=== PATIENT | male | born 1955 | race Caucasian/White ===

== ENCOUNTER 2016-09-13 05:55 | Inpatient (IN) | payer OTHER ==
[2016-09-01 11:17] VITALS: BMI 35.0
--- NOTE | 2016-09-01 11:55 | PAT Medication Instructions ---
Service Date Sep 01, 2016. Current Home Medication List Colchicine (Colchicine), 0.6 MG PO QAM Dapagliflozin-Metformin HCl (Xigduo Xr 5-1000 mg), 1 TAB PO BID Ezetimibe (Zetia), 10 MG PO QAM Fish Oil (English-3), 1 CAP PO QAM Insulin Detemir (Levemir), 20 UNITS SQ QPM Losartan Potassium (Cozaar), 50 MG PO QAM Montelukast Sodium (Montelukast Sodium), 1 TAB PO QAM Nebivolol Hcl (Bystolic), 10 MG PO QAM Pregabalin (Lyrica), 50 MG PO TID Rabeprazole Sodium (Rabeprazole Sodium), 1 TAB PO QAM Tiotropium Mckinney (Spiriva Handihaler), 1 CAP INH QAM Medication Instructions For Your Scheduled Surgery Colchicine (Colchicine), 0.6 MG PO QAM (per surgeon instructions- to hold 10 days prior to surgery per surgeon- patient will check if this is correct) - Hold the following medications starting 09/02/16: Fish Oil (English-3), 1 CAP PO QAM - Hold the following medications 48 hours prior to surgery: Dapagliflozin-Metformin HCl (Xigduo Xr 5-1000 mg), 1 TAB PO BID - Hold the following medications the morning of surgery: Losartan Potassium (Cozaar), 50 MG PO QAM Montelukast Sodium (Montelukast Sodium), 1 TAB PO QAM - Take the following medications the morning of surgery with a sip of water: Rabeprazole Sodium (Rabeprazole Sodium), 1 TAB PO QAM Pregabalin (Lyrica), 50 MG PO TID Nebivolol Hcl (Bystolic), 10 MG PO QAM Ezetimibe (Zetia), 10 MG PO QAM - Take the following medications as scheduled the night before surgery: Pregabalin (Lyrica), 50 MG PO TID Insulin Detemir (Levemir), 20 UNITS SQ QPM If you have any questions please call us at [phone] (Светлана Ventura PA-C) or [phone] or [phone]
--- NOTE | 2016-09-01 12:20 | DIAGNOSTIC IMAGING REPORT ---
CHEST 2 VIEWS ROUTINE CLINICAL HISTORY: Preoperative chest COMPARISON STUDY: No previous studies for comparison. FINDINGS: The cardiac and mediastinal contours are normal. There is no evidence of focal pulmonary consolidation. There is no evidence of failure. No pleural effusions are visualized.[ A rounded opacity at the right lung base with fading margins, likely represents a nipple shadow IMPRESSION: 1. 10 mm opacity at the right lung base, likely representing a nipple shadow. 2. No evidence of focal pulmonary consolidation. No evidence of failure. Electronically signed by: Varinder Anderson M.D. 09/01/2016 12:19 PM Dictated Date/Time: 09/01/2016 12:18 PM
[2016-09-01 12:38] LABS: BASO % 0.4 %; BASO ABS # 0.03 K/uL (0-0.2); COMPLETE YES; EOS % 1.1 %; HEMATOCRIT 45.7 % (42-52); IG% 0.5 %; LYMPH ABS # 2.21 K/uL (1.2-3.4); MEAN CELL VOLUME 90.9 fL (80-100); MEAN CORPUSCULAR HEMOGLOBIN 31.2 pg (25-34); MEAN CORPUSCULAR HGB CONC 34.4 g/dl (32-36); MONO % 8.6 %; NEUT % 63.4 %; PLATELET COUNT 192 K/uL (130-400); RED BLOOD COUNT 5.03 M/uL (4.7-6.1); WHITE BLOOD COUNT 8.49 K/uL (4.8-10.8)
[2016-09-01 12:49] LABS: PROTHROMBIN TIME (PATIENT) 10.8 SECONDS (9.0-12.0)
[2016-09-01 12:56] LABS: URINE APPEARANCE CLEAR (CLEAR); URINE BILIRUBIN NEG (NEG); URINE COLOR YELLOW; URINE NITRITE NEG (NEG); URINE SPECIFIC GRAVITY 1.038 (1.000-1.030); UROBILINOGEN NEG (NEG); ZZUR CULT IF INDIC CLEAN CATCH NO
[2016-09-01 13:04] LABS: BUN/CREATININE RATIO 20.3 (10-20); CALCIUM 9.2 mg/dl (8.5-10.1); CREATININE 0.93 mg/dl (0.60-1.40); POTASSIUM 4.3 mmol/L (3.5-5.1)
[2016-09-01 13:05] LABS: MANUAL MICROSCOPIC REQUIRED? NO; REVIEW REQ? NO
[2016-09-01 13:12] LABS: ESTIMATED AVERAGE GLUCOSE 169 mg/dl; HA1C FLAG Normal (Normal)
--- NOTE | 2016-09-12 10:42 | HISTORY & PHYSICAL EXAMINATION ---
DATE OF ADMISSION: 09/13/2016 CHIEF COMPLAINT: Right hip pain. HISTORY OF PRESENT ILLNESS: Ron is a 61-year-old male who has 30-year history of right hip pain. The patient rates his pain a 10/10. He has pain with his daily activities. He has limited standing and walking tolerance. Pain is worse with weightbearing. The patient has had NSAIDs and home exercise program without relief. He is now ready to proceed with right total hip arthroplasty. PAST MEDICAL HISTORY: Hypercholesterolemia, sleep apnea, diabetes, GERD, history of MRSA right upper extremity, history of gout. He denies heart disease or DVT. PAST SURGICAL HISTORY: I\T\D right forearm. SOCIAL HISTORY: The patient denies alcohol or tobacco use. He lives in a single-story home with his and is retired. FAMILY HISTORY: Negative for DVT. MEDICATIONS: Montelukast 10 mg daily, Xigduo XR 5 mg b.i.d., omega-3 500 mg daily, Lyrica 50 mg t.i.d., ezetimibe 10 mg daily, rabeprazole 20 mg daily, colchicine 0.6 mg daily, losartan 50 mg daily, Bystolic 10 mg daily, Spiriva 2.5 mcg 2 puffs daily, Levemir 20 units at p.m. ALLERGIES: None. REVIEW OF SYSTEMS: See HPI. Ten other systems reviewed, all negative. PHYSICAL EXAMINATION: VITAL SIGNS: Height 5 feet 9, weight 242 pounds. BMI is 36. GENERAL: This is a well-developed, well-nourished male who is alert and oriented x3. Mood and affect are appropriate. HEENT: Normocephalic, atraumatic. Mucous membranes are moist and intact. NECK: Supple without lymphadenopathy. HEART: Regular rate and rhythm without murmurs, rubs or gallops. LUNGS: Clear to auscultation without wheezes or rhonchi. ABDOMEN: Soft and nontender. Bowel sounds are equal and active. EXTREMITIES: No ecchymosis, redness or warmth. Thigh and calf are soft and nontender. He has reproducible pain with log rolling of the hip. Range of motion is decreased. He is neurovascularly intact. He does have some chronic bilateral lower extremity neuropathy. He walks with an antalgic gait. X-RAY EXAMINATION: AP and lateral views show joint space narrowing and osteophyte formation. IMPRESSION: Degenerative joint disease, right hip. PLAN: The patient will be admitted for a right total hip arthroplasty. We will plan on [facility] for physical therapy. PCP is Dr. Meléndez.
[~2016-09-13] VITALS: Ht 175.3 cm; Wt 110.0 kg
[2016-09-13] VITALS (10 sets, daily range): BP systolic 104–140; BP diastolic 66–89; PULSE 76–86; TEMP 36.4–36.9; O2SAT 93–96; Ht 175.3 cm; Wt 110.0 kg
[~2016-09-13 05:55] MED LIST: COLC0.6T54 PO; DAPA1TAB5 PO; EZET10TA63 PO; LOSA50TA6 PO; LVMI SQ; LYR50 PO; MONT1TAB5 PO; NEBI10TA2 PO; OMEG10007 PO; RABE1TAB2 PO; SPRIN/30 INH
[2016-09-13] MEDS ORDERED: METOCLOPRAMIDE HCL 10 MG TAB PO SCH (06:00)
[2016-09-13] MEDS ORDERED: CEFAZOLIN 2000 MG/60 ML D5W 60 ML IV SCH (06:00)
[2016-09-13] MEDS ORDERED: LACTATED RINGER'S 1000ML IV SCH (06:00)
[2016-09-13] MEDS ORDERED: GABAPENTIN 300 MG CAP PO SCH (06:00)
[2016-09-13] MEDS ORDERED: ROPIVACAINE 5MG/ML 30 ML 150 MG, BUPIVACAINE/EPINEPHR 0.5% MPF 30 ML, KETOROLAC TROMETH... INFIL SCH ×7 (06:00)
[2016-09-13] MEDS ORDERED: ACETAMINOPHEN 500 MG TAB PO SCH (06:00)
[2016-09-13] MEDS ORDERED: FAMOTIDINE 20 MG TAB PO SCH (06:00)
[2016-09-13] MEDS ORDERED: VANCOMYCIN INJ 400 MG in NSS 100ML IR SCH (06:00)
[2016-09-13] MEDS ORDERED: OXYCODONE HCL 10 MG TABCR (OXYCONTIN) PO SCH (06:00)
[2016-09-13] MEDS ORDERED: CeleBREX 200 MG CAP PO SCH (06:00)
[2016-09-13] MEDS ORDERED: POLYMYXIN B SULFATE 100,000 UNITS in NSS 100ML IR SCH (06:00)
[2016-09-13] MEDS ORDERED: MIDAZOLAM HCL 1 MG/ML 2ML VIAL ONE (06:55)
--- NOTE | 2016-09-13 06:55 | History & Physical Bridge Note ---
H&P Re-Evaluation Bridge Note: I have examined the patient, reviewed the History & Physical and in the interval since the performance of the History & Physical I have noted the following changes of clinical significance: No changes noted
[2016-09-13] MEDS ORDERED: FENTANYL CITRATE INJ 50 MCG/1 ML 2 ML VIAL ONE (07:24)
[2016-09-13] MEDS ORDERED: BUPIVACAINE 0.5 % 5 MG/1 ML PF 10ML VIAL ONE (07:32)
[2016-09-13] MEDS ORDERED: BACITRACIN 50000 UNIT VIAL ONE (07:44)
[2016-09-13] MEDS ORDERED: POVIDONE-IODINE OP SOLN 30 ML BTL ONE (07:44)
[2016-09-13] MEDS ORDERED: ORTHO JOINT ANESTHETIC ONE (07:44)
[2016-09-13] MEDS ORDERED: ALBUTEROL 0.083% NEBU SOLN 3 ML VIAL INH PRN (08:15)
[2016-09-13] MEDS ORDERED: MoRPHine SULFATE 10 MG/ML CARP/VIAL IV PRN (08:15)
[2016-09-13] MEDS ORDERED: FENTANYL CITRATE INJ 50 MCG/1 ML 2 ML VIAL IV PRN (08:15)
[2016-09-13] MEDS ORDERED: ATROPINE SULFATE 0.1 MG/ML 5ML SYR IV PRN (08:15)
[2016-09-13] MEDS ORDERED: EpHEDrine SULFATE INJ 50 MG/ML AMP IV PRN (08:15)
[2016-09-13] MEDS ORDERED: ONDANSETRON INJ 2 MG/ML 2 ML VIAL IV PRN ×2 (08:15→10:15)
[2016-09-13] MEDS ORDERED: MEPERIDINE HCL 25 MG/ML CARP IV PRN (08:15)
[2016-09-13] MEDS ORDERED: PROPOFOL IV EMULSION 10 MG/ML 20 ML VIAL IV ONE (09:33)
[2016-09-13] MEDS ORDERED: PHENYLEPHRINE 100MCG/ML 5ML SYR ONE (09:33)
--- NOTE | 2016-09-13 10:04 | [facility] Post Operative Brief Note ---
Immediate Operative Summary Operative Date Sep 13, 2016. Pre-Operative Diagnosis Degenerative joint disease, right hip Post-Operative Diagnosis Same as preop Procedure(s) Performed Right Total Hip Arthroplasty, uncemented, Direct Anterior Approach Surgeon Dr. Campbell Ruffler Surgeon(s) Daija Chavira PA-C Estimated Blood Loss 50 cc Findings DJD Specimens A: right femoral head Complication(s) None Disposition Recovery Room / PACU
--- NOTE | 2016-09-13 10:11 | DIAGNOSTIC IMAGING REPORT ---
RIGHT HIP OR FILMS CLINICAL HISTORY: Right hip prosthesis. COMPARISON STUDY: None. FLUOROSCOPY TIME: 12 seconds.. FINDINGS: A single fluoroscopic spot image of the right hip. There is a right total hip arthroplasty. The hardware appears intact. No fracture or dislocation. IMPRESSION: Fluoroscopy provided for right total hip arthroplasty. Electronically signed by: Dereck Andrade M.D. 09/13/2016 10:09 AM Dictated Date/Time: 09/13/2016 10:09 AM
[2016-09-13] MEDS ORDERED: ZOLPIDEM TARTRATE 5 MG TAB PO PRN (10:15)
[2016-09-13] MEDS ORDERED: TRAMADOL HCL 50 MG TAB PO PRN (10:15)
[2016-09-13] MEDS ORDERED: MAGNESIUM HYDROXIDE SUSP 30 ML UDC PO PRN (10:15)
[2016-09-13] MEDS ORDERED: METOCLOPRAMIDE HCL INJ 5 MG/ML 2 ML VIAL IV PRN (10:15)
[2016-09-13] MEDS ORDERED: MoRPHine SULFATE 2 MG/ML CARP IV PRN (10:15)
[2016-09-13] MEDS ORDERED: DiphenhydrAMINE HCL 50 MG/ML VIAL IV PRN (10:15)
[2016-09-13] MEDS ORDERED: ALUMINUM/MAGNESIUM/SIMETH (MAALOX MAX) 30 ML UDC PO PRN (10:15)
[2016-09-13] MEDS ORDERED: BISACODYL 10 MG SUPP PR PRN (10:15)
[2016-09-13] MEDS ORDERED: SOD PHOSPHATE/SOD BIPHOSPHATE ENEMA 132 ML BTL PR PRN (10:15)
[2016-09-13] MEDS ORDERED: NURSING VERBAL MED ORDER ONE (11:00)
--- NOTE | 2016-09-13 11:00 | DIAGNOSTIC IMAGING REPORT ---
AP PELVIS, CROSSTABLE LATERAL RIGHT HIP History: Right total hip arthroplasty. Degenerative arthritis. Postop. FINDINGS: The patient is status post a right total hip arthroplasty. The hardware is intact. No fracture or dislocation. Surgical drains are in place. IMPRESSION: Right total hip arthroplasty. No evidence for hardware complication Electronically signed by: Dereck Andrade M.D. 09/13/2016 10:59 AM Dictated Date/Time: 09/13/2016 10:55 AM
--- NOTE | 2016-09-13 11:44 | Anesthesiology Progress Note ---
Anesthesia Post Op Note Date & Time Sep 13, 2016 at 11:44 Vital Signs Pain Intensity: 0 Vital Signs Past 12 Hours Date Time Temp Pulse Resp B/P Pulse Ox O2 Delivery O2 Flow Rate FiO2 09/13/16 11:40 37 75 16 132/89 96 Nasal Cannula 2 09/13/16 11:30 72 16 135/77 96 Nasal Cannula 2 09/13/16 11:20 72 16 122/85 96 Nasal Cannula 2 09/13/16 11:10 74 16 134/74 100 Nasal Cannula 2 09/13/16 11:00 74 16 126/82 99 Nasal Cannula 2 09/13/16 10:50 71 16 130/96 100 Mask 10 09/13/16 10:40 72 16 130/80 100 Mask 10 09/13/16 10:32 36.6 78 16 134/80 99 Mask 10 09/13/16 07:05 36.9 82 18 140/85 94 Room Air Notes Mental Status: alert / awake / arousable, participated in evaluation Pt Amnestic to Procedure: Yes Nausea / Vomiting: adequately controlled Pain: adequately controlled Airway Patency, RR, SpO2: stable & adequate BP & HR: stable & adequate Hydration State: stable & adequate Neuraxial Anesthesia: was administered, sensory block is resolving Anesthetic Complications: no major complications apparent
[2016-09-13] MEDS ORDERED: PHARMACY GLYCEMIC MGMT CONSULT PRN (12:08)
[2016-09-13] MEDS: TRANEXAMIC ACID INJ 1,000 MG in SODIUM CHLORIDE 0.9% 100ML 100 ML IV SCH ×2 (13:03→13:04)
[2016-09-13] MEDS: SODIUM CHLOR 0.45% + 20MEQ KCL 1,000 ML IV SCH ×2 (13:27→22:03)
[2016-09-13] MEDS: KETOROLAC TROMETHAMINE 30 MG/ML VIAL IV. SCH ×2 (13:28→18:19)
[2016-09-13] MEDS: ACETAMINOPHEN 500 MG TAB PO SCH ×2 (13:29→21:52)
[2016-09-13] MEDS: PREGABALIN 50 MG CAP PO SCH ×2 (13:31→21:52)
[2016-09-13] MEDS ORDERED: GLUCAGON FOR INJ 1 MG VIAL SQ PRN (13:45)
[2016-09-13] MEDS ORDERED: GLUCOSE 40% GEL 15 GM TUBE PO PRN (13:45)
[2016-09-13] MEDS ORDERED: GLUCOSE 10 TABS/TUBE PO PRN (13:45)
[2016-09-13] MEDS ORDERED: DEXTROSE 50% 50 ML SYR IV PRN (13:45)
[2016-09-13] MEDS ORDERED: PNEUMOCOCCAL POLYSACCHARIDES 25 MCG/0.5 ML VIAL/SYR IM. ONE (14:00)
[2016-09-13] MEDS ORDERED: PNEUMOCOCCAL ADMINISTRATION CHARGE ONE (14:00)
--- NOTE | 2016-09-13 14:06 | Pharmacy Progress Note ---
Glycemic Control Intl Consult Date of Service Sep 13, 2016. Scope Glycemic Pharmacist consulted by Dr. Campbell on 09/13/16 for glycemic control and to write orders per [facility] inpatient glycemic control protocol Objective Weight (Kilograms): 110.000 Accuchecks BSG (last 24hrs): Test 09/13/16 10:54 09/13/16 12:45 Bedside Glucose 136 mg/dl (70-99) 148 mg/dl (70-99) HbA1c Test 09/01/16 12:02 Hemoglobin A1c 7.5 % (4.5-5.6) H Recent Pertinent Medications Outpatient Anti-diabetic Regimen: * Levemir 20 units sq qPM + dapaglifozin/metformin 5 mg/1000 mg qAM Risk Factors for Insulin Resistance: * Steroids/ortho mix x 1 * Recent Surgery (POD #0) * Diet Assessment & Plan ASSESSMENT: * 61 year old male with T2DM admitted for right hip surgery. Will continue home dose of insulin per patient is tightly controlled and add weight based correctional/prandial insulin. * ADA & AACE recommend a goal blood sugar range 140-180 mg/dl for the majority of critically ill & non-critically ill patients. However, more stringent targets may be selected in individual cases. Will utilize more stringent goal of 110-140 mg/dl based on patient age, comorbidities and tight glycemic control as outpatient. Additionally, tighter glycemic control is warranted to facilitate wound/infection healing. * Pt is maintained on oral antidiabetic agents as an outpatient * Oral agents are not recommended for inpatient use d/t drug interactions, changing PO intake, and difficulty titrating for acute hyper/hypoglycemia. ADA recommends re-initiating outpatient oral agents 1-2 days prior to discharge if/ when appropriate if they were held on admission. * Will hold oral agents for admission and utilize SQ basal bolus insulin regimen which is the recommended regimen for inpatient glycemic control. * Will initiate weight based insulin dosing for insulin jason patient and titrate based on BSG trends. PLAN FOR INPATIENT GLYCEMIC CONTROL: * Holding outpatient oral diabetes medications * Basal insulin with Levemir 20 units SQ qPM (home dose) * NOVOLOG per scale ACHS * Goal Range: Low 110 mg/dL - High 140 mg/dL * Correction Factor: 30 mg/dL/unit * Nutritional / Prandial insulin per carb ratio of 1 unit per 10 grams CHO consumed * Please note that the plan above was derived based on current level of insulin resistance and hospital stress. These recommendations are appropriate for inpatient admission only. Plan of care upon discharge will need to be reassessed to avoid potential outpatient hypo/hyperglycemia. Thank you.
[2016-09-13] MEDS: CEFAZOLIN IV 2,000 MG in DEXTROSE 5% 50ML 50 ML IV SCH (16:39)
--- NOTE | 2016-09-13 16:49 | OPERATIVE REPORT ---
DATE OF OPERATION: 09/13/2016 PREOPERATIVE DIAGNOSIS: Degenerative arthritis, right hip. POSTOPERATIVE DIAGNOSIS: Same. PROCEDURE: Right total hip replacement. SURGEON: Dr. Campbell. PHARMACY ANCILLARY: YENI Cruz. ANESTHESIA: Spinal. BLOOD LOSS: 50 mL. REPLACEMENT FLUIDS: 1800 mL of crystalloid. DRAINS: Hemovac x2. CULTURES: None. COMPLICATIONS: None. COMPONENTS USED: [employer] Polar hip system: Acetabulum size 56, femur size 4 standard offset, femoral head size 0.36. DESCRIPTION: Following satisfactory spinal, the patient was supine. The right leg was placed in the traction device and the left leg in the well leg juarez. The legs were prepared with ChloraPrep and draped sterilely. Following a surgical time-out, an anterior approach in the interval between the sartorius and tensor muscles was completed, the circumflex femoral vessels were identified and ligated. An anterior capsulotomy was performed exposing a very arthritic femoral neck and head. The femoral neck and head were trimmed and removed. The acetabular self-retaining retractor was placed. Acetabular reaming was completed and a 56 shell was impacted into an anatomic position and secured with a dome screw and confirmed with fluoroscopy. After local anesthetic and irrigation, the poly liner was placed. Attention was turned to the femur. The femur was placed into position of external rotation, extension and adduction. The femoral canal was prepared up to the size 4. Intraoperative fluoroscopy with a 0 neck length head showed good fit and fill of the proximal canal and pentecostal of leg lengths using fluoroscopic landmarks. The trial component was removed, after hip dislocation, the final implant was placed and the hip was irrigated and reduced with fluoroscopy confirming the position. After a Betadine soak, the capsule was closed with 1-0 Vicryl interrupted. A drain was placed deep. The muscle fascia was closed with a running suture of 1 Vicryl, the subcutaneous tissues with 2-0 Vicryl and the skin with a running subcuticular stitch of 3-0 V-Loc. Dermabond and a dry dressing were applied. The patient was returned to his bed in stable condition. I attest to the content of the Intraoperative Record and any orders documented therein. Any exceptio ns are noted below.
[2016-09-13] MEDS ORDERED: TRANEXAMIC ACID INJ 1,000 MG in SODIUM CHLORIDE 0.9% 100ML 100 ML IV ONE (18:30)
[2016-09-13] MEDS: INSULIN ASPART 100 UNITS/ML 3 ML PEN SC SCH ×2 (18:30→22:01)
[2016-09-13] MEDS: OXYCODONE HCL IR 5 MG TAB (IMMEDIATE RELEASE) PO PRN (19:53)
[2016-09-13] MEDS: NEBIVOLOL HCL 5 MG TAB PO SCH (21:00)
[2016-09-13] MEDS ORDERED: DAPAGLIFLOZIN METFORMIN HCL PO SCH (21:00)
[2016-09-13] MEDS ORDERED: SENNA 8.6 MG TAB PO SCH (21:00)
[2016-09-13] MEDS ORDERED: INSULIN DETEMIR FLEXPEN/FLEX TOUCH 100 UNITS/ML 3ML SC SCH (21:00)
[2016-09-13] MEDS: ASPIRIN 81 MG ECTAB PO SCH (21:53)
[2016-09-14] MEDS: CEFAZOLIN IV 2,000 MG in DEXTROSE 5% 50ML 50 ML IV SCH (00:27)
[2016-09-14] MEDS: KETOROLAC TROMETHAMINE 30 MG/ML VIAL IV. SCH ×2 (00:29→05:47)
[2016-09-14 03:15] VITALS: BP 126/76; PULSE 77; TEMP 36.6; O2SAT 97
[2016-09-14] MEDS: ACETAMINOPHEN 500 MG TAB PO SCH (05:47)
[2016-09-14] MEDS ORDERED: LACTATED RINGER'S 1000ML 1,000 ML IV SCH (06:00)
[2016-09-14] MEDS ORDERED: LACTATED RINGER'S 1000ML 500 ML IV ONE (06:00)
[2016-09-14 07:37] LABS: COMPLETE YES; IG% 0.3 %; LYMPH % 8.4 %; LYMPH ABS # 0.91 K/uL (1.2-3.4); MEAN CELL VOLUME 91.5 fL (80-100); MEAN CORPUSCULAR HEMOGLOBIN 31.1 pg (25-34); MEAN PLATELET VOLUME 11.2 fL (7.4-10.4); MONO % 9.2 %; NEUT % 82.1 %; PLATELET COUNT 157 K/uL (130-400); RED BLOOD COUNT 4.37 M/uL (4.7-6.1)
[2016-09-14] MEDS: SODIUM CHLOR 0.45% + 20MEQ KCL 1,000 ML IV SCH (08:00)
[2016-09-14 08:17] VITALS: BP 120/72; PULSE 76; TEMP 36.7; O2SAT 94
--- NOTE | 2016-09-14 08:27 | Orthopedic Progress Note ---
Orthopedic Progress Note Date of Service Sep 14, 2016. Subjective Post OP Day: 1 Reports: feeling well, Denies: SOB, calf pain, chest pain, light headedness, nausea / vomiting Objective calves soft nontender, N/V intact, dressing C/D/I, A&O x3, toes mobile, hemovac drainage (135/100 CC ) Date Time Temp Pulse Resp B/P Pulse Ox O2 Delivery O2 Flow Rate FiO2 09/14/16 08:17 36.7 76 18 120/72 94 Room Air 09/14/16 03:15 36.6 77 18 126/76 97 Room Air 09/14/16 00:25 Room Air 09/13/16 23:45 36.9 82 17 116/72 96 Room Air 09/13/16 22:05 82 108/69 09/13/16 18:50 36.8 86 18 132/76 94 Room Air 09/13/16 15:30 95 Nasal Cannula 3.0 09/13/16 15:23 36.4 79 20 115/67 95 Nasal Cannula 3.0 09/13/16 14:09 86 16 104/66 94 Nasal Cannula 2.0 09/13/16 13:15 81 16 110/73 94 Nasal Cannula 2.0 09/13/16 12:45 76 16 119/84 93 09/13/16 12:15 94 Nasal Cannula 2.0 09/13/16 12:15 36.9 78 16 133/89 94 Nasal Cannula 2.0 09/13/16 12:15 94 Nasal Cannula 2.0 09/13/16 11:50 37 75 16 100/74 92 Nasal Cannula 3 09/13/16 11:40 37 75 16 132/89 96 Nasal Cannula 2 09/13/16 11:30 72 16 135/77 96 Nasal Cannula 2 09/13/16 11:20 72 16 122/85 96 Nasal Cannula 2 09/13/16 11:10 74 16 134/74 100 Nasal Cannula 2 09/13/16 11:00 74 16 126/82 99 Nasal Cannula 2 09/13/16 10:50 71 16 130/96 100 Mask 10 09/13/16 10:40 72 16 130/80 100 Mask 10 09/13/16 10:32 36.6 78 16 134/80 99 Mask 10 Laboratory Results 24 Hours: Test 09/14/16 07:05 White Blood Count 10.80 K/uL Red Blood Count 4.37 M/uL Hemoglobin 13.6 g/dL Hematocrit 40.0 % Mean Corpuscular Volume 91.5 fL Mean Corpuscular Hemoglobin 31.1 pg Mean Corpuscular Hemoglobin Concent 34.0 g/dl Platelet Count 157 K/uL Mean Platelet Volume 11.2 fL Neutrophils (%) (Auto) 82.1 % Lymphocytes (%) (Auto) 8.4 % Monocytes (%) (Auto) 9.2 % Eosinophils (%) (Auto) 0.0 % Basophils (%) (Auto) 0.0 % Neutrophils # (Auto) 8.87 K/uL Lymphocytes # (Auto) 0.91 K/uL Monocytes # (Auto) 0.99 K/uL Eosinophils # (Auto) 0.00 K/uL Basophils # (Auto) 0.00 K/uL Assessment & Plan Assessment: POD#1 SP RIGHT ILIA, DIRECT ANTERIOR MORBID OBESITY DM Inhouse Planning Pain Management: Celebrex, PO Tylenol, Oxy IR DVT Prophylaxis: TEDs, SCDs, ASA Discharge Planning Discharge Planning: home with home health ([facility]. )
--- NOTE | 2016-09-14 08:28 | Discharge Instructions ---
Discharge Instructions Date of Service Sep 14, 2016. Admission Reason for Admission: Right Hip Degenerative Arthritis Discharge Discharge Diagnosis / Problem: SP RIGHT ILIA, DIRECT ANTERIOR Discharge Goals Goal(s): Decrease discomfort, Improve function, Increase independence Activity Recommendations Activity Limitations: per Instructions/Follow-up section . Instructions / Follow-Up Instructions / Follow-Up ACTIVITY RECOMMENDATIONS: SELF CARE INSTRUCTIONS AFTER TOTAL HIP REPLACEMENT : Direct Anterior Approach Until the incision and soft tissues around your hip have healed, there is a possibility that the hip prosthesis could dislocate. A. Hip flexion ( Up & Down out of chair or steps ) may be difficult. This is normal. B. Numbness in front of the thigh is also normal for a few weeks. C. Use hand rails when walking on stairs. D. Wear low heeled shoes with non-slip soles. E. Be sure that your floors are free of things that could trip you - throw rugs , electrical cords, small objects. Avoid wet and waxed floors, especially with crutches and canes. F. Try to walk several times a day with rest periods between. G. Continue with all the exercises taught to you in the hospital. Again, make walking a part of your daily routine. SPECIAL CARE INSTRUCTIONS: VERY IMPORTANT TO READ AND REVIEW A. You may still be at risk for phlebitis and blood clots. 1. Wear surgical stockings (JUDY hose) for 2 weeks after surgery to improve circulation and reduce swelling. 2. Take Aspirin 81mg twice daily for 4 weeks or as directed by your doctor. This is your blood thinner. 3. High risk patients may be prescribed a stronger blood thinner if necessary. 4. If you are on Coumadin normally, your family doctor/peer health promoter should monitor your blood work. Expect a phone call the day of or the day after bloodwork is drawn to adjust your dosage. B. You must take antibiotics before having dental work, bladder, bowel and other surgery. Your doctor will provide you with a permanent card to carry describing precautions. C. Call [facility] if you have a fever, redness or swelling around the incision, cloudy drainage from incision, or sudden increase in pain in your hip, not relieved by your regular pain medication. D. Please call the office at if you have any concerns or questions about your operation or recovery. * YOU MAY SHOWER, NO TUB BATHS UNTIL CLEARED BY YOUR DOCTOR. - Keep an extra close eye on the top portion of your incision. Be sure to keep clean & dry. * WEAR JUDY HOSE 20 HOURS PER DAY FOR 2 WEEKS. * YOU MAY PROGRESS FROM A WALKER, TO A CANE, TO INDEPENDENT AT YOUR OWN PACE. * MOST PATIENTS WILL HAVE HOME NURSING FOR THERAPY. IF YOU DECIDE TO DO OUTPATIENT PHYSICAL THERAPY, PLEASE SCHEDULE THIS 3 TIMES PER WEEK. * DERMABOND Prineo- This is a mesh tape dressing that is covered with glue. It should remain in place until the incision is properly healed, usually 10-14 days. This dressing is designed to naturally slough off. You may trim the excess mesh tape as it peels off. Incision may be briefly wet in a shower. Dry immediately by blotting with a clean, dry towel. Do not bath or swim until instructed by your doctor. Do not scratch, rub, or pick at the dressing. Do not apply any topical ointments or lotions until dressing is completely removed and/or instructed by your doctor. There may be a small piece of suture material at one end of your incision. Do not pull or trim this. If it is bothersome or catching on clothing, you may cover it with a band-aid. FOLLOW UP VISIT: If appointment is not already scheduled: Please call [facility] to make a follow-up appointment for 2 weeks after your surgery at . Current Hospital Diet Patient's current hospital diet: Diabetes Type 2 Diet Discharge Diet Recommended Diet: Regular Diet Procedures Procedures Performed: Right Total Hip Arthroplasty, uncemented, Direct Anterior Approach Pending Studies Studies pending at discharge: no Laboratory Results Hemoglobin A1c Test 09/01/16 12:02 Range/Units Estimated Average Glucose 169 mg/dl Hemoglobin A1c 7.5 H 4.5-5.6 % Medical Emergencies . Who to Call and When: Medical Emergencies: If at any time you feel your situation is an emergency, please call 911 immediately. . Non-Emergent Contact Non-Emergency issues call your: Surgeon . "Provider Documentation" section prepared by Laverne Sands. VTE Core Measure Inpt VTE Proph given/why not?: Other Anticoagulation, T.E.D. Stockings, SCD's [place] Drug Monitoring Program Search Results: patient reviewed within database, no issues identified
[2016-09-14 08:30] LABS: CALCIUM 8.2 mg/dl (8.5-10.1); POTASSIUM 4.3 mmol/L (3.5-5.1)
[2016-09-14] MEDS ORDERED: ACET-1138 PO (08:32)
[2016-09-14] MEDS ORDERED: ASPEC81 PO (08:32)
[2016-09-14] MEDS ORDERED: ONDA8TAB6 PO (08:32)
[2016-09-14] MEDS ORDERED: SNK PO (08:32)
[2016-09-14] MEDS ORDERED: CLB200 PO (08:32)
[2016-09-14] MEDS ORDERED: RXC5 PO (08:32)
[2016-09-14] MEDS ORDERED: DOXY1TAB6 PO (08:33)
[2016-09-14] MEDS ORDERED: EZETIMIBE 10MG TAB PO SCH (09:00)
[2016-09-14] MEDS ORDERED: PANTOprazole SOD 40 MG TAB PO SCH (09:00)
[2016-09-14] MEDS ORDERED: TIOTROPIUM BROMIDE 5 PUFF/90 MCG INH INH SCH (09:00)
[2016-09-14] MEDS ORDERED: MULTIVITAMIN TAB PO SCH (09:00)
[2016-09-14] MEDS ORDERED: COLCHICINE 0.6 MG TAB PO SCH (09:00)
[2016-09-14] MEDS ORDERED: MONTELUKAST SOD 10 MG TAB PO SCH (09:00)
[2016-09-14] MEDS ORDERED: LOSARTAN POTASSIUM 50 MG TAB PO SCH (09:00)
[2016-09-14] MEDS ORDERED: RABEPRAZOLE SODIUM PO SCH (09:00)
[2016-09-14] MEDS: NEBIVOLOL HCL 5 MG TAB PO SCH (10:04)
[2016-09-14] MEDS: ASPIRIN 81 MG ECTAB PO SCH (10:05)
[2016-09-14] MEDS: PREGABALIN 50 MG CAP PO SCH (10:08)
--- NOTE | 2016-09-14 10:09 | Anesthesiology Progress Note ---
Anesthesia Post Op Note Date & Time Sep 14, 2016 at 10:08 Vital Signs Pain Intensity: 0.0 Vital Signs Past 12 Hours Date Time Temp Pulse Resp B/P Pulse Ox O2 Delivery O2 Flow Rate FiO2 09/14/16 08:17 36.7 76 18 120/72 94 Room Air 09/14/16 03:15 36.6 77 18 126/76 97 Room Air 09/14/16 00:25 Room Air 09/13/16 23:45 36.9 82 17 116/72 96 Room Air Notes Mental Status: alert / awake / arousable, participated in evaluation Pt Amnestic to Procedure: Yes Nausea / Vomiting: adequately controlled Pain: adequately controlled Airway Patency, RR, SpO2: stable & adequate BP & HR: stable & adequate Hydration State: stable & adequate Neuraxial Anesthesia: sensory block resolved Anesthetic Complications: no major complications apparent
[2016-09-14] MEDS: INSULIN ASPART 100 UNITS/ML 3 ML PEN SC SCH (10:11)
[2016-09-14] MEDS: OXYCODONE HCL IR 5 MG TAB (IMMEDIATE RELEASE) PO PRN (10:21)
[2016-09-14 10:53] VITALS: BP 120/72; PULSE 76; TEMP 36.7; O2SAT 94
--- NOTE | 2016-09-15 11:27 | DISCHARGE SUMMARY ---
DISCHARGE DIAGNOSIS: Degenerative joint disease, right hip. SECONDARY DIAGNOSES: Hypercholesterolemia, sleep apnea, diabetes mellitus, GERD, history of MRSA right upper extremity, history of gout. CONSULTS: None. COMPLICATIONS: None. PROCEDURES: Right total hip arthroplasty, direct anterior performed by Dr. Surya Campbell on 09/13/2016. BRIEF HISTORY: As dictated in history and physical. HOSPITAL SUMMARY: The patient was admitted on the above date and had the above-noted surgery performed which he tolerated well. On the first postoperative day, he was feeling well and had no complaints. Calves were soft, nontender, neurovascularly intact. Dressings clean, dry and intact. Toes were mobile. Vital signs were stable. He was afebrile. Hemoglobin was 13.6 and he was started on physical therapy protocol and continued on DVT prophylaxis and pain management. He was progressing well with his PT, remaining stable and it was felt he could be discharged to home on 09/14/2016. For further review, please see chart. LAB AND X-RAY DATA: As per chart. DISCHARGE INSTRUCTIONS: The patient was discharged to home in satisfactory condition on 09/14/2016. DIET: Type 2 diabetic. ACTIVITY: Follow ILIA instruction sheets and special care instructions as noted and follow up with Dr. Campbell in 2 weeks. The patient to call for appointment if one has not been made for you. DISCHARGE MEDICATIONS: Acetaminophen 1000 mg p.o. q. 8 hours, aspirin 81 mg p.o. b.i.d., Celebrex 200 mg p.o. b.i.d., doxycycline 100 mg 1 tab p.o. b.i.d., Zofran 8 mg p.o. q. 8 hours p.r.n., oxycodone 5-10 mg p.o. q. 4 hours p.r.n., senna 17.2 mg p.o. at bedtime. Resume taking colchicine 0.6 mg p.o. q.a.m., Xigduo XR 10/999 one tab p.o. b.i.d., Zetia 10 mg p.o. q.a.m., fish oil caplet 1 p.o. q.a.m., Levemir 20 units subQ q.p.m., losartan potassium 50 mg p.o. q.a.m., montelukast sodium 10 mg 1 tab p.o. q.a.m., Bystolic 10 mg p.o. q.a.m., pregabalin 50 mg p.o. t.i.d., rabeprazole 20 mg 1 tab p.o. q.a.m. and Spiriva HandiHaler 1 cap inhaled q.a.m.
[2016-09-15] MEDS ORDERED: CeleBREX 200 MG CAP PO SCH (21:00)
== END 2016-09-14 12:30 | disposition home health service (06) | DRG 470 ==
LOC: ENRESERVDT → ENRESERVTM → C.ACU 05:55 → C.MSW 10:08
PROVIDERS: ADMIT Orthopaedic Surgery; ATTEND Orthopaedic Surgery
PROC: 0SR904A Replacement of Right Hip Joint with Ceramic on Polyethylene Synthetic Substitute, Uncemented, Open Approach (ICD-10-PCS; principal; 2016-09-13 08:15)
DX: M16.11 Unilateral primary osteoarthritis, right hip (principal); I10 Essential (primary) hypertension; J44.9 Chronic obstructive pulmonary disease, unspecified; J45.909 Unspecified asthma, uncomplicated; E11.42 Type 2 diabetes mellitus with diabetic polyneuropathy; K21.9 Gastro-esophageal reflux disease without esophagitis; E78.00 Pure hypercholesterolemia, unspecified; M10.9 Gout, unspecified; G47.30 Sleep apnea, unspecified; E66.01 Morbid (severe) obesity due to excess calories; Z68.36 Body mass index [BMI] 36.0-36.9, adult; Z79.84 Long term (current) use of oral hypoglycemic drugs; Z79.4 Long term (current) use of insulin; Z79.899 Other long term (current) drug therapy